=== PATIENT | male | born 1995 | race Caucasian/White ===

== ENCOUNTER 2017-12-09 05:30 | Inpatient (IN) | payer MEDICAID, OTHER ==
[~2017-12-09 05:30] MED LIST: DEXM20XR PO
[2017-12-09 05:39] VITALS: BP 175/99; PULSE 94; RESP 18; TEMP 98.4; O2SAT 98
[2017-12-09 06:07] LABS: AUTOMATED NEUTROPHIL # 8.6 TH/MM3 (1.8-7.7); BASOPHIL # 0.1 TH/MM3 (0-0.2); BASOPHIL % 0.5 % (0.0-2.0); EOSINOPHIL # 0.1 TH/MM3 (0-0.4); EOSINOPHIL % 0.7 % (0.0-4.0); HEMATOCRIT 47.4 % (39.0-51.0); HEMOGLOBIN 16.3 GM/DL (13.0-17.0); LYMPH % 13.9 % (9.0-44.0); LYMPHOCYTE # 1.5 TH/MM3 (1.0-4.8); MEAN CELL VOLUME 88.8 FL (80.0-100.0); MEAN CORPUSCULAR HEMOGLOBIN 30.5 PG (27.0-34.0); MEAN CORPUSCULAR HGB CONC 34.3 % (32.0-36.0); MEAN PLATELET VOLUME 6.5 FL (7.0-11.0); MONO % 6.1 % (0.0-8.0); MONOCYTE # 0.7 TH/MM3 (0-0.9); NEUT % 78.8 % (16.0-70.0); PLATELET COUNT 255 TH/MM3 (150-450); RED BLOOD COUNT 5.34 MIL/MM3 (4.50-5.90); RED CELL DISTRIBUTION WIDTH 13.1 % (11.6-17.2)
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
[2017-12-09 06:37] LABS: ALBUMIN 4.2 GM/DL (3.4-5.0); ALT (GPT) 48 U/L (9-52); AST (GOT) 36 U/L (15-39); BICARBONATE 27.5 MEQ/L (21.0-32.0); BLOOD UREA NITROGEN 12 MG/DL (7-18); CALCIUM 9.1 MG/DL (8.5-10.1); CHLORIDE 103 MEQ/L (98-107); CREATININE 0.93 MG/DL (0.60-1.30); GLOMERULAR FILTRATION RATE 104 ML/MIN (>89); GLUCOSE,RANDOM 104 MG/DL (74-106); SODIUM (NA) 138 MEQ/L (136-145)
[2017-12-09 06:47] LABS: ALKALINE PHOSPHATASE 85 U/L (45-117); TOTAL BILIRUBIN ADULT 0.5 MG/DL (0.2-1.0); TOTAL PROTEIN 8.8 GM/DL (6.4-8.2)
[2017-12-09] MEDS ORDERED: ACETAMINOPHEN 325 MG TAB PO PRN (11:15)
[2017-12-09] MEDS ORDERED: ALUMINUM/MAGNESIUM/SIMETH 30 ML CUP PO PRN (11:15)
[2017-12-09] MEDS ORDERED: LORazepam 1 MG TAB PO PRN (11:15)
[2017-12-09] MEDS ORDERED: LORazepam 2 MG/ML VIAL IM PRN ×2 (11:15)
[2017-12-09] MEDS ORDERED: LORazepam 0.5 MG TAB PO PRN (11:15)
[2017-12-09] MEDS ORDERED: MAGNESIUM HYDROXIDE SUSP 30 ML CUP PO PRN (11:15)
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
[2017-12-09] MEDS: NICOTINE 21 MG/24 HR PATCH T-DERMAL SCH (11:57)
[2017-12-09 12:02] VITALS: BP 132/76; PULSE 76; RESP 14; O2SAT 97
[2017-12-09] MEDS: REMOVE OLD NICODERM (NICOTINE) PATCH T-DERMAL SCH (21:00)
[2017-12-09] MEDS: buPROPion HCL 100 MG SUSTAINED RELEASE TAB PO SCH (21:29)
[2017-12-10 06:00] VITALS: BP 125/62; PULSE 72; RESP 16; TEMP 97.5; O2SAT 98
[2017-12-10] MEDS: buPROPion HCL 100 MG SUSTAINED RELEASE TAB PO SCH ×2 (09:10→21:17)
[2017-12-10] MEDS: NICOTINE 21 MG/24 HR PATCH T-DERMAL SCH (09:11)
[2017-12-10 12:38] LABS: BICARBONATE 28.1 MEQ/L (21.0-32.0); BLOOD UREA NITROGEN 13 MG/DL (7-18); CALCIUM 9.5 MG/DL (8.5-10.1); CHLORIDE 102 MEQ/L (98-107); CREATININE 0.96 MG/DL (0.60-1.30); GLOMERULAR FILTRATION RATE 100 ML/MIN (>89); GLUCOSE,RANDOM 71 MG/DL (74-106); SODIUM (NA) 137 MEQ/L (136-145)
[2017-12-10 12:39] LABS: CHOLESTEROL 140 MG/DL (120-200); TRIGLYCERIDES 96 MG/DL (42-150)
[2017-12-10 12:44] LABS: CHOLESTEROL/ HDL RATIO 4.32 RATIO; HDL CHOLESTEROL 32.4 MG/DL (40.0-60.0); LDL CHOLESTEROL 88 MG/DL (0-99)
[2017-12-10 15:38] LABS: HEMOGLOBIN A1C 5.5 % (4.3-6.0)
--- NOTE | 2017-12-10 17:24 | HHI.PYPN ---
Subjective Remarks Patient seen for follow up, chart reviewed. Discussion with nursing staff reported that the patient noted to be social, compliant with medications. Patient found in day room, calm and cooperative. Patient states that he is feeling "good", sleeping well, eating and drinking well with no notable side effects from medications. Patient states that he has been thinking about recent episode of suicidal ideation and recalls the events. He mentions not wanting to continue contact with the woman whom had rejected him regarding possible relationship. 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 He denies SI, HI, AVH or delusions at this time. Review of Systems Except as stated in HPI: all other systems reviewed are Neg Mental Status Examination Appearance: Appropriate Consciousness: Alert Orientation: x4 Motor Activity: Normal gait Speech: Unremarkable Language: Adequate Fund of Knowledge: Adequate Attention and Concentration: Adequate Memory: Unremarkable Mood: Appropriate Affect: Sad Thought Process & Associations: Intact Thought Content: Appropriate, Bizarre thinking Hallucination Type: None Delusion Type: None Suicidal Ideation: Yes (denies today) Suicidal Plan: No Suicidal Intention: No Homicidal Ideation: No Homicidal Plan: No Homicidal Intention: No Insight: Poor Judgment: Poor Results Labs labs reviewed Test 12/10/17 10:20 Blood Urea Nitrogen 13 MG/DL Creatinine 0.96 MG/DL Random Glucose 71 MG/DL Calcium Level 9.5 MG/DL Sodium Level 137 MEQ/L Potassium Level 4.5 MEQ/L Chloride Level 102 MEQ/L Carbon Dioxide Level 28.1 MEQ/L Anion Gap 7 MEQ/L Estimat Glomerular Filtration Rate 100 ML/MIN Triglycerides Level 96 MG/DL Cholesterol Level 140 MG/DL LDL Cholesterol 88 MG/DL HDL Cholesterol 32.4 MG/DL Cholesterol/HDL Ratio 4.32 RATIO Vitals/IOs Vital Signs Date Time Temp Pulse Resp B/P (MAP) Pulse Ox O2 Delivery O2 Flow Rate FiO2 12/10/17 06:00 97.5 72 16 125/62 (83) 98 12/09/17 12:02 Room Air Assessment & Plan Problem List: (1) Adjustment disorder with mixed disturbance of emotions and conduct ICD Codes: F43.25 - Adjustment disorder with mixed disturbance of emotions and conduct Assessment & Plan Patient with noted improving with mood and insight, denies SI. Continue current treatment. Counseled on abstinence from substance use. Continue to monitor mood and behavior. Discharge planning in progress. Justification for Cont. Inpt. At risk for further decompensation if at lower level of care. Discharge Planning Back to parents Javier Kim MD Dec 10, 2017 17:24
[2017-12-10 19:29] VITALS: BP 122/64; PULSE 76; RESP 18; TEMP 98.4; O2SAT 99
[2017-12-10] MEDS: REMOVE OLD NICODERM (NICOTINE) PATCH T-DERMAL SCH (21:17)
[2017-12-11 05:38] VITALS: BP 127/61; PULSE 78; RESP 18; TEMP 97.3; O2SAT 98
[2017-12-11] MEDS: NICOTINE 21 MG/24 HR PATCH T-DERMAL SCH (10:16)
[2017-12-11] MEDS: buPROPion HCL 100 MG SUSTAINED RELEASE TAB PO SCH ×2 (10:17→21:36)
--- NOTE | 2017-12-11 13:08 | HHI.PYPN ---
Subjective Remarks Patient seen for follow-up, chart reviewed. Discussion with staff reported that patient was noted to be somewhat seclusive to his room denying suicide if this time. The patient was found lying in hospital, cooperative today. Patient reports sleeping well, no problems eating and drinking tolerating medications well without adverse drug reactions. Patient reports his mood is "good" denies suicide ideations and states that he had been reflecting on the circumstances that brought him to the hospital and states that he wants to be able to manage his better and wants to continue treatment as well as engage in therapy once discharged. Patient reports he'll be visited by his father to see if he brought some clothes but has been speaking with them over the phone since his admission. Patient at this time denies any SI, HI, AVH or delusions. Review of Systems Except as stated in HPI: all other systems reviewed are Neg Mental Status Examination Appearance: Appropriate Consciousness: Alert Orientation: x4 Motor Activity: Normal gait Speech: Unremarkable Language: Adequate Fund of Knowledge: Adequate Attention and Concentration: Adequate Memory: Unremarkable Mood: Appropriate Affect: Sad (less so today) Thought Process & Associations: Intact, Goal directed, Linear Thought Content: Appropriate, Bizarre thinking Hallucination Type: None Delusion Type: None Suicidal Ideation: Yes (denies today) Suicidal Plan: No Suicidal Intention: No Homicidal Ideation: No Homicidal Plan: No Homicidal Intention: No Insight: Fair Judgment: Impulsive Results Vitals/IOs Vital Signs Date Time Temp Pulse Resp B/P (MAP) Pulse Ox O2 Delivery O2 Flow Rate FiO2 12/11/17 05:38 97.3 78 18 127/61 (83) 98 12/09/17 12:02 Room Air Intake and Output 12/11/17 12/11/17 12/12/17 08:00 16:00 00:00 Intake Total 240 ml 240 ml Balance 240 ml 240 ml Assessment & Plan Problem List: (1) Adjustment disorder with mixed disturbance of emotions and conduct ICD Codes: F43.25 - Adjustment disorder with mixed disturbance of emotions and conduct Assessment & Plan Patient this time wanting improvement of mood, endorses feeling regret due to recent actions and is future oriented. Patient denies any suicide issues at this time. Patient tolerating medications well. Continue current treatment. Continue monthly behavior. Collateral from patient pending for family after patient's visit with his father this evening. Patient possible discharge tomorrow. Justification for Cont. Inpt. At risk for further decompensation at lower level of care Discharge Planning Patient return back to his residence was psychiatric stable. Javier Lezama MD Dec 11, 2017 13:08
[2017-12-11 17:41] VITALS: BP 143/71; PULSE 84; RESP 16; TEMP 98.1; O2SAT 98
[2017-12-11] MEDS: REMOVE OLD NICODERM (NICOTINE) PATCH T-DERMAL SCH (21:00)
[2017-12-12 06:08] VITALS: BP 126/62; PULSE 72; RESP 16; TEMP 97.4; O2SAT 98
[2017-12-12] MEDS: buPROPion HCL 100 MG SUSTAINED RELEASE TAB PO SCH (08:59)
[2017-12-12] MEDS: NICOTINE 21 MG/24 HR PATCH T-DERMAL SCH (08:59)
[2017-12-12] MEDS ORDERED: BUPR100CR PO (14:16)
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
== END 2017-12-12 17:20 | disposition home or self-care (01) | DRG 882 ==
LOC: NEPD 05:30 → NEDA 11:11 → H260 13:20
PROVIDERS: ADMIT Student in an Organized Health Care Education/Training Program; ATTEND Student in an Organized Health Care Education/Training Program
DX: F43.25 Adjustment disorder with mixed disturbance of emotions and conduct (principal); S60.221A Contusion of right hand, initial encounter; S60.222A Contusion of left hand, initial encounter; X83.8XXA Intentional self-harm by other specified means, initial encounter; F17.210 Nicotine dependence, cigarettes, uncomplicated
CPT/HCPCS: 73130; 80048; 80053; 80061; 80307; 83036; 84443; 85025